=== PATIENT | male | born 2000 | race Caucasian/White ===

== ENCOUNTER 2023-09-04 11:45 | Emergency (ER) | payer OTHER ==
[2023-09-04] MEDS ORDERED: Lidocaine 2% with EPINEPHrine 1:100,000 20 ML MDV INFILT ONE (11:46)
== END 2023-09-04 12:30 | disposition home or self-care (01) ==
LOC: FB.ED 11:45
DX: S61.511A Laceration without foreign body of right wrist, initial encounter (principal); W26.8XXA Contact with other sharp object(s), not elsewhere classified, initial encounter
CPT/HCPCS: 12001; 99282

== ENCOUNTER 2024-06-19 11:15 | Emergency (ER) | payer OTHER | END 2024-06-19 13:43 | disposition home or self-care (01) | LOC: FB.ED 11:15 | DX: S60.211A Contusion of right wrist, initial encounter (principal); S60.221A Contusion of right hand, initial encounter; V89.2XXA Person injured in unspecified motor-vehicle accident, traffic, initial encounter | CPT/HCPCS: 73110-RT; 73130-RT; 99284 ==